=== PATIENT | female | born 1955 | race Caucasian/White ===

== ENCOUNTER 2018-02-03 10:47 | Emergency (ER) | payer SELFPAY ==
[~2018-02-03] VITALS: Ht 167.6 cm; Wt 58.0 kg
[2018-02-03 11:20] LABS: MICROSCOPIC NOT IND
[2018-02-03 11:33] LABS: CULTURE INDICATED? NO
[2018-02-03 11:42] LABS: BASOPHILS # (AUTO) 0.03 x10^3/uL (0-0.1); BASOPHILS % (AUTO) 0 % (0-1); EOSINOPHILS # (AUTO) 0.04 x10^3/uL (0-0.4); EOSINOPHILS % (AUTO) 0 % (1-7); LYMPHOCYTES # (AUTO) 2.18 x10^3/uL (1-3.4); LYMPHOCYTES % (AUTO) 20 % (22-44); MD NO; MEAN CORPUSCULAR HEMOGLOBIN 28.9 pg (27.0-34.8); MEAN CORPUSCULAR HGB CONC 32.7 g/dL (32.4-35.8); MEAN CORPUSCULAR VOLUME 88.4 fL (80-100); MEAN PLATELET VOLUME 7.1 fL (7.4-10.4); MONOCYTES # (AUTO) 0.69 x10^3/uL (0.2-0.8); MONOCYTES % (AUTO) 6 % (2-9); NEUTROPHILS % (AUTO) 73 % (42-75); PLATELET COUNT 405 x10^3/uL (130-400); RED BLOOD COUNT 5.18 x10^6/uL (3.82-5.3); RED CELL DISTRIBUTION WIDTH 13.5 % (9.6-15.2)
[2018-02-03 11:54] LABS: ANION GAP 6 mmol/L (5-15); CALCIUM 9.2 mg/dL (8.5-10.1); CHLORIDE 99 mmol/L (98-107); CREATININE 0.73 mg/dL (0.55-1.02)
[2018-02-03 12:59] VITALS: BP 141/79
[2018-02-03] MEDS ORDERED: OMNIPAQUE 350 MG/ML, 100ML BOTTLE ONE (14:18)
== END 2018-02-03 15:05 | disposition home or self-care (01) ==
LOC: ED 12:52
DX: G89.29 Other chronic pain (principal); R10.2 Pelvic and perineal pain; R30.0 Dysuria
CPT/HCPCS: 36415; 74177; 76770; 80048; 81003; 82040; 85025; 99285; Q9967

== ENCOUNTER 2018-02-19 21:45 | Emergency (ER) | payer OTHER ==
[~2018-02-19] VITALS: Ht 167.6 cm; Wt 57.0 kg
[2018-02-19 21:52] VITALS: BP 144/81
== END 2018-02-19 22:36 | disposition home or self-care (01) ==
LOC: ED 22:30
DX: R42 Dizziness and giddiness (principal); Z53.21 Procedure and treatment not carried out due to patient leaving prior to being seen by health care provider

== ENCOUNTER 2018-02-26 06:42 | Emergency (ER) | payer SELFPAY ==
[~2018-02-26] VITALS: Ht 167.6 cm; Wt 57.0 kg
[2018-02-26 07:20] LABS: BASOPHILS # (AUTO) 0.05 x10^3/uL (0-0.1); BASOPHILS % (AUTO) 0 % (0-1); EOSINOPHILS # (AUTO) 0.04 x10^3/uL (0-0.4); EOSINOPHILS % (AUTO) 0 % (1-7); LYMPHOCYTES # (AUTO) 2.46 x10^3/uL (1-3.4); LYMPHOCYTES % (AUTO) 22 % (22-44); MD NO; MEAN CORPUSCULAR HEMOGLOBIN 30.2 pg (27.0-34.8); MEAN CORPUSCULAR HGB CONC 33.9 g/dL (32.4-35.8); MEAN CORPUSCULAR VOLUME 89.2 fL (80-100); MEAN PLATELET VOLUME 7.6 fL (7.4-10.4); MONOCYTES # (AUTO) 0.71 x10^3/uL (0.2-0.8); MONOCYTES % (AUTO) 6 % (2-9); NEUTROPHILS # (AUTO) 7.82 x10^3/uL (1.8-6.8); NEUTROPHILS % (AUTO) 71 % (42-75); PLATELET COUNT 365 x10^3/uL (130-400); RED CELL DISTRIBUTION WIDTH 13.9 % (9.6-15.2)
[2018-02-26] MEDS ORDERED: CLON1TAB PO (07:29)
[2018-02-26] MEDS ORDERED: TIZA4CAP2 PO (07:29)
[2018-02-26] MEDS ORDERED: GABA300C10 PO (07:29)
[2018-02-26 07:30] LABS: ALBUMIN 3.8 g/dL (3.4-5.0); ANION GAP 7 mmol/L (5-15); CALCIUM 9.8 mg/dL (8.5-10.1); CHLORIDE 105 mmol/L (98-107)
[2018-02-26] MEDS ORDERED: SODIUM CHLORIDE FLUSH 10ML SYR IVF ONE (07:30)
[2018-02-26] MEDS ORDERED: SODIUM CHLORIDE 0.9% 1,000ML IVBOLUS ONE (07:30)
[2018-02-26 07:33] LABS: MICROSCOPIC AUTO
[2018-02-26 07:34] LABS: ALANINE AMINOTRANSFERASE 32 U/L (12-78); ALKALINE PHOSPHATASE 79 U/L (45-117); BILIRUBIN,TOTAL 0.6 mg/dL (0.2-1.0); CREATININE 0.77 mg/dL (0.55-1.02); TOTAL PROTEIN 6.7 g/dL (6.4-8.2)
[2018-02-26 07:37] LABS: CULTURE INDICATED? NO
[2018-02-26] MEDS ORDERED: OMNIPAQUE 350 MG/ML, 100ML BOTTLE ONE (08:28)
[2018-02-26 09:02] VITALS: BP 124/76
[2018-02-26 11:19] LABS: CLOSTRIDIUM DIFFICILE ANTIGEN NEGATIVE; CLOSTRIDIUM DIFFICILE TOXIN NEGATIVE (Negative)
== END 2018-02-26 11:45 | disposition home or self-care (01) ==
LOC: ED 11:39
DX: R55 Syncope and collapse (principal); R42 Dizziness and giddiness; G89.29 Other chronic pain; R10.2 Pelvic and perineal pain; F31.9 Bipolar disorder, unspecified; F41.1 Generalized anxiety disorder
CPT/HCPCS: 36415; 74177; 80053; 81001; 83690; 85025; 87046; 87324; 87427; 89055; 93005; 96360; 99285; J7030; Q9967